=== PATIENT | female | born 1950 | race Caucasian/White ===

== ENCOUNTER 2016-09-06 10:18 | Emergency (ER) | payer MEDICARE ==
[~2016-09-06] VITALS: Ht 152.4 cm; Wt 56.0 kg
[~2016-09-06 10:18] MED LIST: BETH5TAB3 PO; LOVA10TA PO; OXYC-360 PO
[2016-09-06 10:24] VITALS: BP 138/71; PULSE 83; RESP 16; TEMP 98.2; O2SAT 96
[2016-09-06] MEDS ORDERED: CARB10TA2 PO (10:42)
[2016-09-06] MEDS ORDERED: CYAN100025 SL (10:42)
[2016-09-06] MEDS ORDERED: OMEGCAP PO (10:42)
[2016-09-06] MEDS ORDERED: FERR1TAB36 PO (10:42)
[2016-09-06] MEDS ORDERED: PRAM0.5T PO (10:42)
[2016-09-06] MEDS ORDERED: POTA75TA (10:42)
[2016-09-06] MEDS ORDERED: MAGN200T PO (10:42)
[2016-09-06] MEDS ORDERED: CALCCHW9 CHEW (10:42)
[2016-09-06] MEDS ORDERED: CLAR10CA3 PO (10:42)
[2016-09-06] MEDS ORDERED: BETH25TA2 PO (10:42)
[2016-09-06] MEDS ORDERED: LOVA20TA PO (10:42)
[2016-09-06] MEDS ORDERED: VICOTAB4 PO (10:42)
[2016-09-06] MEDS ORDERED: SODIUM CHLOR 0.9% 1000 ML INJ 1,000 ML IV ONE (10:57)
[2016-09-06] MEDS ORDERED: DICYCLOMINE HCL 20 MG/2 ML VIAL IM ONE (11:15)
[2016-09-06] MEDS: SODIUM CHLORIDE 0.9% FLUSH 5 ML FLUSH IVF PRN ×2 (11:20→12:50)
[2016-09-06 11:25] VITALS: BP 113/54; PULSE 66; RESP 16; O2SAT 94
--- NOTE | 2016-09-06 11:29 | PD ---
HPI . Diarrhea Chief Complaint: GI Complaint Time Seen by Provider: 10:56 Travel History International Travel<30 days: No Contact w/Intl Traveler<30days: No Traveled to known affect area: No History of Present Illness HPI Patient presents with diarrhea that started 5 days ago. She reports 20-30 episodes per day. She describes the stool is brown and watery. She describes associated nausea and abdominal cramping. She has had no fever but has had chills. She states that she saw her PMD a couple of days ago who recommended Pepto-Bismol. She reports that she has been taking Pepto-Bismol without relief. She reports normal urinary output. PFSH Past Medical History High Cholesterol: Yes Diminished Hearing: No GERD: Yes Medical other: Yes (restless leg syndrome, fibromyalgia) Musculoskeletal: Yes (degenerative disc disease) Neurologic: Yes (peripheral neuropathy) Parkinson's Disease: Yes Tetanus Vaccination: > 5 Years ?: Not Past Surgical History Abdominal Surgery: Yes (PERFORATED ULCER) Section: Yes Social History Alcohol Use: No Tobacco Use: No Substance Use: No Allergies-Medications (Allergen,Severity, Reaction): Coded Allergies: No Known Allergies (Verified , 09/06/16) Reported Meds & Prescriptions Reported Meds & Active Scripts Active Reported Potassium 75 Mg Tab DAILY Claritin (Loratadine) 10 Mg Cap 10 Mg PO DAILY Magnesium 200 Mg Tab 200 Mg PO DAILY B-12 (Cyanocobalamin) 1,000 Mcg Subl 1,000 Mcg SL DAILY Iron (Ferrous Sulfate) 325 Mg Tab 325 Mg PO DAILY Take Liberty-3 Fish Oil/Vitamin (Fish Oil-Cholecalciferol) 1,000-1,000 Mg Cap 1 Cap PO DAILY Calcium 1200 (Calcium Carbonate-Vitamin D W/Minerals) 1,200-1,000 Mg-Unit Chew 1 Tab CHEW DAILY Vicoprofen (Hydrocodone-Ibuprofen) 7.5-200 Mg Tab 1 Tab PO Q6H PRN Bethanechol 25 Mg Tab 25 Mg PO BID Pramipexole (Pramipexole Dihydrochloride) 0.5 Mg Tab 0.5 Mg PO HS Lovastatin 20 Mg Tab 20 Mg PO HS Carbidopa-Levodopa 10-100 Mg Tab 1 Tab PO Q4HR Review of Systems Except as stated in HPI: all other systems reviewed are Neg General / Constitutional: Positive: Chills, No: Fever HENT: No: Lightheadedness Gastrointestinal: Positive: Nausea, Diarrhea, Abdominal Pain, No: Vomiting Genitourinary: No: Decreased Urinary Output Physical Exam Narrative GENERAL: Healthy-appearing older woman in no acute distress. SKIN: Warm and dry. HEAD: Atraumatic. Normocephalic. EYES: Pupils equal and round. ENT: No nasal bleeding or discharge. Mucous membranes pink and moist. NECK: Trachea midline. Neck is supple. CARDIOVASCULAR: Regular rate and rhythm. Heart sounds are normal. RESPIRATORY: No accessory muscle use. Lungs are clear with full abdomen throughout. GASTROINTESTINAL: Abdomen soft, non-tender, nondistended. MUSCULOSKELETAL: No obvious deformities. No edema. NEUROLOGICAL: Awake and alert. No obvious cranial nerve deficits. Motor grossly within normal limits. Normal speech. PSYCHIATRIC: Appropriate mood and affect; insight and judgment normal. Data Data Last Documented VS Vital Signs Date Time Temp Pulse Resp B/P Pulse Ox O2 Delivery O2 Flow Rate FiO2 09/06/16 12:30 77 16 113/54 99 09/06/16 11:25 Room Air 09/06/16 10:24 98.2 Orders Complete Blood Count With Diff (09/06/16 10:57) Comprehensive Metabolic Panel (09/06/16 10:57) Urinalysis - C+S If Indicated (09/06/16 10:57) Iv Access Insert/Monitor (09/06/16 10:57) Sodium Chlor 0.9% 1000 Ml Inj (Ns 1000 M (09/06/16 10:57) Sodium Chloride 0.9% Flush (Ns Flush) (09/06/16 11:00) C Diff Toxin Pcr (09/06/16 10:57) Enteric Path (Stool) (09/06/16 10:57) Dicyclomine Inj (Bentyl Inj) (09/06/16 11:15) Urine Culture (09/06/16 11:40) Potassium Chloride (Kcl) (09/06/16 12:45) Ceftriaxone Inj (Rocephin Inj) (09/06/16 12:45) Labs Laboratory Tests Test 09/06/16 09/06/16 11:15 11:40 White Blood Count 10.3 TH/MM3 Red Blood Count 4.88 MIL/MM3 Hemoglobin 15.6 GM/DL Hematocrit 45.4 % Mean Corpuscular Volume 93.2 FL Mean Corpuscular Hemoglobin 31.9 PG Mean Corpuscular Hemoglobin 34.2 % Concent Red Cell Distribution Width 12.1 % Platelet Count 235 TH/MM3 Mean Platelet Volume 9.5 FL Neutrophils (%) (Auto) 75.8 % Lymphocytes (%) (Auto) 13.4 % Monocytes (%) (Auto) 9.2 % Eosinophils (%) (Auto) 1.2 % Basophils (%) (Auto) 0.4 % Neutrophils # (Auto) 7.8 TH/MM3 Lymphocytes # (Auto) 1.4 TH/MM3 Monocytes # (Auto) 1.0 TH/MM3 Eosinophils # (Auto) 0.1 TH/MM3 Basophils # (Auto) 0.0 TH/MM3 CBC Comment DIFF FINAL Differential Comment Sodium Level 138 MEQ/L Potassium Level 2.6 MEQ/L Chloride Level 99 MEQ/L Carbon Dioxide Level 28.3 MEQ/L Anion Gap 11 MEQ/L Blood Urea Nitrogen 12 MG/DL Creatinine 0.69 MG/DL Estimat Glomerular Filtration 85 ML/MIN Rate Random Glucose 132 MG/DL Calcium Level 8.3 MG/DL Total Bilirubin 0.4 MG/DL Aspartate Amino Transf 47 U/L (AST/SGOT) Alanine Aminotransferase 76 U/L (ALT/SGPT) Alkaline Phosphatase 130 U/L Total Protein 7.0 GM/DL Albumin 3.2 GM/DL Urine Collection Type CLEAN CATCH Urine Color YELLOW Urine Turbidity CLEAR Urine pH 6.0 Urine Specific [place] 1.025 Urine Protein 30 mg/dL Urine Glucose (UA) NEG mg/dL Urine Ketones TRACE mg/dL Urine Occult Blood MOD Urine Nitrite NEG Urine Bilirubin NEG Urine Leukocyte Esterase SMALL Urine RBC 20-24 /hpf Urine WBC 15-19 /hpf Urine Squamous Epithelial > 8 /hpf Cells Urine Bacteria FEW /hpf Microscopic Urinalysis Comment CULTURE INDICATED Urine Collection Time 11:40 MDM Medical Decision Making Medical Screen Exam Complete: Yes Emergency Medical Condition: Yes Medical Record Reviewed: Yes Differential Diagnosis Differential diagnosis of diarrhea includes but is not limited to early enteritis, bacterial enteritis, antibiotic induced diarrhea, irritable bowel syndrome Narrative Course This patient presents complaining with 20-30 episodes of diarrhea per day. Nonetheless, she has continued to have normal urinary output. She is not tachycardic or hypotensive. CBC is unremarkable Chemistries are remarkable for potassium of 2.6. BUN/creat is 12/0.69. LFTs are mildly elevated. UA is suggestive of a UTI. The patient is feeling much better. I will discharge her on Macrobid and potassium. She should force fluids. Follow-up with her primary care physician in weeks. Diagnosis Primary Impression: Diarrhea Qualified Code: R19.7 - Diarrhea, unspecified type Additional Impressions: Hypokalemia UTI (urinary tract infection) Qualified Code: N30.00 - Acute cystitis without hematuria Additional Instructions: Macrobid as directed for the urinary tract infection. Potassium is directed to correct the low potassium. Lots of fluids. Follow-up with your doctor next week. Med/Other Pt SpecificInfo: Prescription(s) given Scripts Potassium Chloride ER 20 Meq Tab40 Meq PO BID 5 Days Ref 0 Prov:Aziza Graham MD 09/06/16 Nitrofurantoin Monohydrate Macrocrystals (Macrobid)100 Mg Leu935 Mg PO BID #10 CAP Ref 0 Prov:Aziza Graham MD 09/06/16 Disposition: DISCHARGE HOME Condition: Stable Aziza Graham MD Sep 06, 2016 11:29
[2016-09-06 11:35] LABS: AUTOMATED NEUTROPHIL # 7.8 TH/MM3 (1.8-7.7); BASOPHIL % 0.4 % (0.0-2.0); EOSINOPHIL # 0.1 TH/MM3 (0-0.4); EOSINOPHIL % 1.2 % (0.0-4.0); HEMATOCRIT 45.4 % (35.0-46.0); LYMPH % 13.4 % (9.0-44.0); LYMPHOCYTE # 1.4 TH/MM3 (1.0-4.8); MEAN CELL VOLUME 93.2 FL (80.0-100.0); MEAN CORPUSCULAR HEMOGLOBIN 31.9 PG (27.0-34.0); MEAN CORPUSCULAR HGB CONC 34.2 % (32.0-36.0); MONO % 9.2 % (0.0-8.0); NEUT % 75.8 % (16.0-70.0); PLATELET COUNT 235 TH/MM3 (150-450); RED BLOOD COUNT 4.88 MIL/MM3 (4.00-5.30); RED CELL DISTRIBUTION WIDTH 12.1 % (11.6-17.2); WHITE BLOOD COUNT 10.3 TH/MM3 (4.0-11.0)
[2016-09-06 11:37] LABS: HEMO FLAGS DIFF FINAL
[2016-09-06 11:49] LABS: ANION GAP 11 MEQ/L (5-15); BICARBONATE 28.3 MEQ/L (21.0-32.0); BLOOD UREA NITROGEN 12 MG/DL (7-18); CHLORIDE 99 MEQ/L (98-107); SODIUM (NA) 138 MEQ/L (136-145)
[2016-09-06 11:50] LABS: GLUCOSE,URINE NEG (NEG); KETONE, URINE TRACE mg/dL (NEG); NITRITE,URINE NEG (NEG)
[2016-09-06 11:54] LABS: POTASSIUM 2.6 MEQ/L (3.5-5.1)
[2016-09-06 12:12] LABS: BLOOD, URINE MOD (NEG); METHOD OF COLLECTION CLEAN CATCH
[2016-09-06 12:13] LABS: BACTERIA, URINE FEW /hpf; COMMENT (UR) CULTURE INDICATED; CULTURE IF INDICATED CULTURE INDICATED; SQUAMOUS EPITHELIAL CELL URINE > 8 /hpf (0-5); URINE COLOR YELLOW (YELLW/STRAW); WBC, URINE 15-19 /hpf (0-5)
[2016-09-06 12:15] LABS: ALKALINE PHOSPHATASE 130 U/L (45-117); ALT (GPT) 76 U/L (10-53); AST (GOT) 47 U/L (15-37); GLOMERULAR FILTRATION RATE 85 ML/MIN (>89); TOTAL BILIRUBIN ADULT 0.4 MG/DL (0.2-1.0)
[2016-09-06 12:30] VITALS: BP 113/54; PULSE 77; RESP 16; O2SAT 99
[2016-09-06] MEDS ORDERED: cefTRIAXone INJ 1,000 MG in SODIUM CHLORIDE 0.9% INJ 100 ML IV ONE (12:45)
[2016-09-06] MEDS ORDERED: POTASSIUM CHLORIDE 20 MEQ CONTROLLED RELEASE TAB PO ONE (12:45)
[2016-09-06] MEDS ORDERED: POTA-163 PO (13:32)
[2016-09-06] MEDS ORDERED: MACR100C2 PO (13:32)
[2016-09-06 14:20] VITALS: BP 114/54
[2016-09-06 16:30] LABS: C. DIFF EPI 027 PRESUMPTIVE NEGATIVE (NEGATIVE); C. DIFF TOXIN PCR NEGATIVE (NEGATIVE)
== END 2016-09-06 14:22 | disposition home or self-care (01) ==
LOC: PHED 10:18
DX: R19.7 Diarrhea, unspecified (principal); N39.0 Urinary tract infection, site not specified; E87.6 Hypokalemia; E78.00 Pure hypercholesterolemia, unspecified; K21.9 Gastro-esophageal reflux disease without esophagitis; G20 Parkinson's disease; M79.7 Fibromyalgia; B96.20 Unspecified Escherichia coli [E. coli] as the cause of diseases classified elsewhere; A02.9 Salmonella infection, unspecified
CPT/HCPCS: 80053; 81001; 85025; 87077; 87086; 87186; 87493; 87506; 96361; 96365; 96372; 99284; J0500; J0696; J7030